=== PATIENT | female | born 1955 | race Caucasian/White ===

== ENCOUNTER 2019-03-07 20:34 | Emergency (ER) | payer BC, MEDICARE ==
[2019-03-07] MEDS ORDERED: LORazepam 2 MG/ML SDV IVPUSH ONE (21:08)
[2019-03-07] MEDS ORDERED: Ketorolac 30 MG/ML SDV IVPUSH ONE (21:08)
[2019-03-07] MEDS ORDERED: Sodium Chloride 0.9% 10 ML Syringe FLUSH PRN (21:08)
[2019-03-07] MEDS ORDERED: Sodium Chloride 0.9% 1,000 ML IV ONE (21:08)
[2019-03-07] MEDS ORDERED: Prochlorperazine 5 MG in Sodium Chloride 0.9% 50 ML IV ONE (21:08)
--- NOTE | 2019-03-07 21:16 | EDM.PDOC ---
ED HPI GENERAL MEDICAL PROBLEM - General Chief Complaint: Headache Stated Complaint: MIGRAINE Time Seen by Provider: 03/07/19 20:50 Source of Information: Reports: Patient History Limitations: Reports: No Limitations - History of Present Illness INITIAL COMMENTS - FREE TEXT/NARRATIVE: 63-year-old female with long-standing history of migraine headaches who had not had headaches for quite some time and recently moved back to the area and reports a lot of stress in her life at this point and 2 days ago began with what is her typical migraine. She has bitemporal throbbing and pounding pain with some radiation to her occiput on the right side. There is photophobia. She has had nausea with dry heaving. She has had decreased by mouth intake she rates pain as a 9/10. She has taken [id number] medication and monitor for hydrocodone since she hasn't home without relief of her pain. She reports that she had a similar headache a week or so ago and was seen in the walk-in clinic she reports that she has aching all over and this is somewhat related to the fact that she is no longer taking Humira for her psoriatic arthritis (she stopped this in September of this year secondary to insurance payment constraints ) but she feels that it is also related to the fact that she feels tense all over her migraine headache. She has had no fevers. She has had no diarrhea. She' s had no cough. There is no localized area weakness or numbness. There are no other associated signs or symptoms. There are no other modifying factors. Onset: Other (2 days ago) Duration: Constant (Not improving) Location: Reports: Head Quality: Reports: Throbbing (And pounding) Severity: Moderate (Severe) Improves with: Reports: None Worsens with: Reports: Other (Light, sound), Movement Context: Reports: Other (No inciting event known.) Associated Symptoms: Reports: Headaches, Nausea/Vomiting (Dry heaving) Treatments LAB RN: Reports: Other (see below) (As above without relief.) - Related Data Allergies Allergy/AdvReac Type Severity Reaction Status Date / Time oxycodone [From OxyContin] Allergy Headache Verified 09/01/18 21:10 zolpidem [From Ambien] Allergy Confusion Verified 09/01/18 21:10 Home Meds: Home Meds Adalimumab [Humira] 40 mg SUBCUT ASDIRECTED 03/10/18 [History] Levothyroxine 125 mcg PO QAM 11/24/17 [History] Losartan [Cozaar] 25 mg PO DAILY 11/24/17 [History] Teriparatide [Forteo] 20 mcg SUBCUT DAILY 11/24/17 [History] Triamcinolone Acetonide [Kenalog 0.1% Crm] 1 applic TOP BID PRN 12/06/17 [ History] Acetaminophen [Tylenol] 650 mg PO Q6H cup 12/12/17 [Rx] Gabapentin [Neurontin] 300 mg PO TID 08/13/18 [History] QUEtiapine [SEROquel] 50 - 100 mg PO BEDTIME 08/13/18 [History] Past Medical History Cardiovascular History: Reports: Hypertension Gastrointestinal History: Reports: Bowel Obstruction, Cholelithiasis, Chronic Constipation, Chronic Diarrhea, Colon Polyp, GERD, Hemorrhoids Genitourinary History: Reports: Pyelonephritis, Other (See Below) Other Genitourinary History: Partial removal of right kidney Musculoskeletal History: Reports: Back Pain, Chronic (She is on chronic narcotic pain management with hydrocodone for this by her primary doctor.), Fracture, Gout, Neck Pain, Chronic, Osteoarthritis, Osteoporosis, Other (See Below) Other Musculoskeletal History: right wrist fracture; psoriatic arthritis Neurological History: Reports: Concussion, Headaches, Chronic, Migraines Psychiatric History: Reports: Anxiety, Depression Endocrine/Metabolic History: Reports: Hypothyroidism Hematologic History: Reports: B12 Deficiency, Blood Transfusion(s) Oncologic (Cancer) History: Reports: Other (See Below) Other Oncologic History: skin Dermatologic History: Reports: Psoriasis - Infectious Disease History Infectious Disease History: Reports: Chicken Pox, Measles, Mumps, Shingles Other Infectious Disease History: History of MRSA under breasts - Past Surgical History HEENT Surgical History: Reports: Tonsillectomy GI Surgical History: Reports: Appendectomy, Bariatric Procedure, Cholecystectomy , Colonoscopy, EGD, Esophageal Dilatation, Hernia Repair/Other, Small Bowel Female Surgical History: Reports: Breast Reduction, Section, Hysterectomy Neurological Surgical History: Reports: Lumbar Spine, Spinal Fusion Musculoskeletal Surgical History: Reports: Knee Replacement, Shoulder Surgery, Other (See Below) Other Musculoskeletal Surgeries/Procedures:: right rotator cuff surgery. bilateral knee replacement Social & Family History - Family History HEENT: Reports: Macular Degeneration, Sinusitis Cardiac: Reports: Heart Failure, High Cholesterol, Hypertension Respiratory: Reports: COPD : Reports: Renal Disease/Insufficiency OBGYN: Reports: Ectopic , Endometriosis, Musculoskeletal: Reports: Back pain, Chronic, Other (See Below) Other Musculoskeletal Family History: knee replacements Neurological: Reports: Alzheimers Disease Endocrine/Metabolic: Reports: Diabetes, type II, Hypothyroidism, Obesity/MBI 30+ Oncologic: Reports: Other (See Below) Other Oncologic Family History: "on foot" - Tobacco Use Smoking Status *Q: Unknown Ever Smoked (Nonsmoker) - Caffeine Use Caffeine Use: Reports: Coffee, Energy Drinks, Soda, Tea - Alcohol Use Alcohol Use History: No ED ROS GENERAL - Review of Systems Review Of Systems: See Below Constitutional: Reports: No Symptoms HEENT: Reports: Other (Mouth) Respiratory: Reports: No Symptoms Cardiovascular: Reports: No Symptoms Endocrine: Reports: No Symptoms GI/Abdominal: Reports: Nausea, Vomiting (And dry heaving) : Reports: No Symptoms Musculoskeletal: Reports: Other (Body aches throughout) Skin: Reports: No Symptoms Neurological: Reports: Headache Hematologic/Lymphatic: Reports: No Symptoms Immunologic: Reports: No Symptoms - Physical Exam Exam: See Below Exam Limited By: No Limitations General Appearance: Alert, WD/WN, Moderate Distress (But she is awake alert and appropriate.) Eye Exam: Bilateral Eye: EOMI, Normal Inspection, Other (Photophobia bilaterally ) Ears: Normal External Exam Nose: Normal Inspection, Normal Mucosa, No Blood Throat/Mouth: Normal Oropharynx (Except dry mouth), No Airway Compromise Head Exam: Atraumatic, Normocephalic Neck: Normal Inspection, Supple Respiratory/Chest: No Respiratory Distress, Lungs Clear, Normal Breath Sounds, No Accessory Muscle Use, Chest Non-Tender Cardiovascular: Normal Peripheral Pulses, Regular Rate, Rhythm, No JVD GI/Abdominal: Normal Bowel Sounds, Soft, Non-Tender Neuro Exam (Abbreviated): Alert, Oriented, CN II-XII Intact, Normal Cognition, No Motor/Sensory Deficits Back Exam: Normal Inspection Extremities: Normal Inspection, Normal Range of Motion, Non-Tender, Normal Capillary Refill Psychiatric: Normal Affect Skin Exam: Warm, Dry, Intact, Normal Color Course - Vital Signs Last Recorded V/S: Last Vital Signs Temp 36.9 C 03/07/19 20:45 Pulse 116 H 03/07/19 20:45 Resp 16 03/07/19 20:45 BP 111/86 03/07/19 20:45 Pulse Ox 100 03/07/19 20:45 - Orders/Labs/Meds Orders: Active Orders 24 hr Category Date Time Status Sodium Chloride 0.9% [Saline Flush] Med 03/07/19 21:08 Active 10 ml FLUSH ASDIRECTED PRN Saline Lock Insert [OM.PC] Routine Oth 03/07/19 21:08 Ordered Medication Orders Sodium Chloride (Saline Flush) 10 ml FLUSH ASDIRECTED PRN PRN Reason: Keep Vein Open Meds: Medications Generic Name Dose Route Start Last Admin Trade Name Freq PRN Reason Stop Dose Admin Sodium Chloride 10 ml 03/07/19 21:08 Saline Flush FLUSH ASDIRECTED PRN Keep Vein Open Discontinued Medications Generic Name Dose Route Start Last Admin Trade Name Freq PRN Reason Stop Dose Admin Diphenhydramine HCl 25 mg 03/07/19 22:54 Benadryl IVPUSH 03/07/19 22:55 ONETIME ONE Prochlorperazine Edisylate 5 51 mls @ 150 mls/hr 03/07/19 21:08 mg/ Sodium Chloride IV 03/07/19 21:28 ONETIME ONE Sodium Chloride 1,000 mls @ 999 mls/hr 03/07/19 21:08 Normal Saline IV 03/07/19 22:08 .BOLUS ONE Ketorolac Tromethamine 30 mg 03/07/19 21:08 Toradol IVPUSH 03/07/19 21:09 ONETIME ONE Lorazepam 1 mg 03/07/19 21:08 Ativan IVPUSH 03/07/19 21:09 ONETIME ONE Prochlorperazine Edisylate 5 mg 03/07/19 22:56 Compazine IVPUSH 03/07/19 22:57 ONETIME ONE - Re-Assessments/Exams Free Text/Narrative Re-Assessment/Exam: 03/07/19 22:15: Patient resting comfortably. She reports that her headache is down to a 6/10 and it is in her forehead area. She awakens easily and is vitally and neurologically stable. Nausea has resolved. I will give her additional Compazine. 03/07/19 23:40: Patient was sleeping. When awakened, she reports that her headache was down to a 4/10 and was decreasing. She feels much improved and is ready for discharge home. Departure - Departure Time of Disposition: 23:50 Disposition: Home, Self-Care 01 Condition: Good Clinical Impression: Dehydration, mild Migraine headache Qualifiers: Migraine type: without aura Status migrainosus presence: without status migrainosus Intractability: not intractable Qualified Code(s): G43.009 - Migraine without aura, not intractable, without status migrainosus - Discharge Information Instructions: Dehydration, Adult, [id number], Migraine Headache, [id number] Forms: ED Department Discharge Additional Instructions: You should rest. You should drink plenty of fluids. Follow-up with your primary doctor. Back to the emergency department for worsening headache, unrelenting vomiting, fever or any other concerning sign or symptom. - My Orders Last 24 Hours: My Active Orders 03/07/19 21:08 Sodium Chloride 0.9% [Saline Flush] 10 ml FLUSH ASDIRECTED PRN Saline Lock Insert [OM.PC] Routine - Assessment/Plan Last 24 Hours: My Active Orders 03/07/19 21:08 Sodium Chloride 0.9% [Saline Flush] 10 ml FLUSH ASDIRECTED PRN Saline Lock Insert [OM.PC] Routine
[2019-03-07] MEDS ORDERED: Haloperidol Lactate 5 MG/ML SDV IV ONE (22:53)
[2019-03-07] MEDS ORDERED: diphenhydrAMINE 50 MG/ML SDV IVPUSH ONE (22:54)
[2019-03-07] MEDS ORDERED: Prochlorperazine 10 MG/2 ML SDV IVPUSH ONE (22:56)
== END 2019-03-08 00:35 | disposition home or self-care (01) ==
LOC: FB.ED 20:34
DX: G43.009 Migraine without aura, not intractable, without status migrainosus (principal); E86.0 Dehydration; I10 Essential (primary) hypertension; K21.9 Gastro-esophageal reflux disease without esophagitis; F41.9 Anxiety disorder, unspecified; F32.9 Major depressive disorder, single episode, unspecified; Z79.899 Other long term (current) drug therapy; Z88.6 Allergy status to analgesic agent; Z88.8 Allergy status to other drugs, medicaments and biological substances
CPT/HCPCS: 96365; 96375; 96376; 99283; J0780; J1200; J1885; J2060; J7030; J7050

== ENCOUNTER 2020-05-14 17:07 | Emergency (ER) | payer MEDICARE, OTHER ==
--- NOTE | 2020-05-14 18:10 | EDM.PDOC ---
ED HPI GENERAL MEDICAL PROBLEM - General Chief Complaint: Chest Pain Stated Complaint: CHEST PAIN Time Seen by Provider: 05/14/20 17:10 Source of Information: Reports: Patient History Limitations: Reports: No Limitations - History of Present Illness INITIAL COMMENTS - FREE TEXT/NARRATIVE: Patient presented to the ED because of chest pain at about 5:30 pm last night. The pain is sharp 3/10. There is no associated N/V, dyspnea or diaphoresis. the pain is pleuritic type. Patient said that she lifted a kayak an hour before the chest pain started. - Related Data Allergies Allergy/AdvReac Type Severity Reaction Status Date / Time oxycodone [From OxyContin] Allergy Headache Verified 03/08/19 20:54 zolpidem [From Ambien] Allergy Confusion Verified 03/08/19 20:54 Home Meds: Home Meds Levothyroxine 125 mcg PO QAM 11/24/17 [History] Losartan [Cozaar] 25 mg PO DAILY 11/24/17 [History] Teriparatide [Forteo] 20 mcg SUBCUT DAILY 11/24/17 [History] Triamcinolone Acetonide [Kenalog 0.1% Crm] 1 applic TOP BID PRN 12/06/17 [History] Acetaminophen [Tylenol] 650 mg PO Q6H cup 12/12/17 [Rx] Gabapentin [Neurontin] 300 mg PO TID 08/13/18 [History] Past Medical History HEENT History: Reports: Impaired Vision Cardiovascular History: Reports: Hypertension Gastrointestinal History: Reports: Bowel Obstruction, Cholelithiasis, Chronic Constipation, Chronic Diarrhea, Colon Polyp, GERD, Hemorrhoids Other Gastrointestinal History: History of ileus. 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, Musculoskeletal History: Reports: Back Pain, Chronic (She is on chronic narcotic pain management with hydrocodone for this by her primary doctor.), Fracture, Gout, Neck Pain, Chronic, Osteoarthritis, Osteoporosis, Other (See Below) Other Musculoskeletal History: right wrist fracture; psoriatic arthritis Neurological History: Reports: Concussion, Headaches, Chronic, Migraines Psychiatric History: Reports: Anxiety, Depression Endocrine/Metabolic History: Reports: Hypothyroidism Hematologic History: Reports: B12 Deficiency, Blood Transfusion(s) Oncologic (Cancer) History: Reports: Other (See Below) Other Oncologic History: skin Dermatologic History: Reports: Psoriasis - Infectious Disease History Infectious Disease History: Reports: Chicken Pox, Measles, Mumps, Shingles Other Infectious Disease History: History of MRSA under breasts - Past Surgical History HEENT Surgical History: Reports: Tonsillectomy GI Surgical History: Reports: Appendectomy, Bariatric Procedure, Cholecystectomy, Colonoscopy, EGD, Esophageal Dilatation, Hernia Repair/Other, Small Bowel Female Surgical History: Reports: Breast Reduction, Section, Hysterectomy Neurological Surgical History: Reports: Lumbar Spine, Spinal Fusion Musculoskeletal Surgical History: Reports: Knee Replacement, Shoulder Surgery, Other (See Below) Other Musculoskeletal Surgeries/Procedures:: right rotator cuff surgery. bilateral knee replacement Social & Family History - Family History Family Medical History: Noncontributory HEENT: Reports: Macular Degeneration, Sinusitis Cardiac: Reports: Heart Failure, High Cholesterol, Hypertension Respiratory: Reports: COPD : Reports: Renal Disease/Insufficiency OBGYN: Reports: Ectopic , Endometriosis, Musculoskeletal: Reports: Back pain, Chronic, Other (See Below) Other Musculoskeletal Family History: knee replacements Neurological: Reports: Alzheimers Disease Endocrine/Metabolic: Reports: Diabetes, type II, Hypothyroidism, Obesity/MBI 30+ Oncologic: Reports: Other (See Below) Other Oncologic Family History: "on foot" - Caffeine Use Caffeine Use: Reports: Coffee, Energy Drinks, Soda, Tea ED ROS GENERAL - Review of Systems Review Of Systems: See Below Constitutional: Reports: No Symptoms HEENT: Reports: No Symptoms Respiratory: Reports: No Symptoms Cardiovascular: Reports: Chest Pain Endocrine: Reports: No Symptoms GI/Abdominal: Reports: No Symptoms : Reports: No Symptoms Musculoskeletal: Reports: No Symptoms Skin: Reports: No Symptoms Neurological: Reports: No Symptoms Psychiatric: Reports: No Symptoms Hematologic/Lymphatic: Reports: No Symptoms ED EXAM, GENERAL - Physical Exam Exam: See Below Exam Limited By: No Limitations General Appearance: Alert, No Apparent Distress Nose: Normal Inspection, Normal Mucosa Throat/Mouth: Normal Inspection, Normal Lips, Normal Teeth Head: Atraumatic, Normocephalic Neck: Normal Inspection, Supple, Non-Tender, Full Range of Motion Respiratory/Chest: No Respiratory Distress, Lungs Clear, Normal Breath Sounds Cardiovascular: Normal Peripheral Pulses, Regular Rate, Rhythm, No Edema, No Gallop GI/Abdominal: Normal Bowel Sounds, Soft, Non-Tender, No Organomegaly Back Exam: Normal Inspection, Full Range of Motion Extremities: Normal Inspection, Normal Range of Motion, Non-Tender Neurological: Alert, Oriented, CN II-XII Intact, Normal Cognition, Normal Gait Psychiatric: Normal Affect Skin Exam: Warm Course - Vital Signs Text/Narrative:: Labs/EKG/was discussed with patient ASA 324 mg po x1 She is chest pain free while in the ED - Orders/Labs/Meds Orders: Active Orders 24 hr Category Date Time Status EKG 12 Lead [EK] Routine Ther 05/14/20 17:18 Ordered Labs: Laboratory Tests 05/14/20 05/14/20 05/14/20 Range/Units 17:20 17:20 17:20 WBC 7.4 (4.5-12.0) X10-3/uL RBC 4.16 (3.23-5.20) x10(6)uL Hgb 12.7 (11.5-15.5) g/dL Hct 38.1 (30.0-51.3) % MCV 91.6 (80-96) fL MCH 30.7 (27.7-33.6) pg MCHC 33.5 (32.2-35.4) g/dL RDW 12.0 (11.5-15.5) % Plt Count 209 (125-369) X10(3)uL MPV 8.5 (7.4-10.4) fL Neut % (Auto) 55.1 (46-82) % Lymph % (Auto) 36.6 (13-37) % Ogle % (Auto) 6.9 (4-12) % Eos % (Auto) 1 (1.0-5.0) % Baso % (Auto) 0 (0-2) % Neut # (Auto) 4.1 (1.6-8.3) # Lymph # (Auto) 2.7 (0.6-5.0) # Ogle # (Auto) 0.5 (0.0-1.3) # Eos # (Auto) 0.1 (0.0-0.8) # Baso # (Auto) 0.0 (0.0-0.2) # Sodium 137 (135-145) mmol/L Potassium 3.6 (3.5-5.3) mmol/L Chloride 100 (100-110) mmol/L Carbon Dioxide 28 (21-32) mmol/L BUN 19 H (7-18) mg/dL Creatinine 0.7 (0.55-1.02) mg/dL Est Cr Clr Drug Dosing TNP Estimated GFR (MDRD) > 60 (>60) BUN/Creatinine Ratio 27.1 H (9-20) Glucose 94 (80-116) mg/dL Calcium 9.8 (8.6-10.2) mg/dL Total Bilirubin 0.8 (0.1-1.3) mg/dL AST 86 H D (5-25) IU/L ALT 64 H D (12-36) U/L Alkaline Phosphatase 64 (56-112) IU/L Troponin I 5.5 (4.0-60.3) pg/mL Total Protein 7.4 (6.0-8.0) g/dL Albumin 4.2 (3.2-4.6) g/dL Globulin 3.2 g/dL Albumin/Globulin Ratio 1.3 Departure - Departure Time of Disposition: 18:10 Disposition: Home, Self-Care 01 Condition: Good Clinical Impression: Atypical chest pain Instructions: Nonspecific Chest Pain, Adult Referrals: Jessie Martines MD [Primary Care Provider] - Forms: ED Department Discharge Additional Instructions: Please read discharge instructions on atypical chest pain or chest wall pain Take tylenol 1000 mg every 8 hours as needed for pain Follow up with your doctor with regard to your spinning sensation so you can be referred to see the physical therapist for canalith repositioning which helps with the spinning sensation that you are experiencing - My Orders Last 24 Hours: My Active Orders 05/14/20 17:18 EKG 12 Lead [EK] Routine - Assessment/Plan Last 24 Hours: My Active Orders 05/14/20 17:18 EKG 12 Lead [EK] Routine
== END 2020-05-14 18:21 | disposition home or self-care (01) ==
LOC: FB.ED 17:07
DX: R07.89 Other chest pain (principal); I10 Essential (primary) hypertension; Z88.5 Allergy status to narcotic agent; Z88.8 Allergy status to other drugs, medicaments and biological substances; Z79.899 Other long term (current) drug therapy; Z90.710 Acquired absence of both cervix and uterus; Z90.49 Acquired absence of other specified parts of digestive tract
CPT/HCPCS: 36415; 80053; 84484; 85025; 99283; 99285-25

== ENCOUNTER 2022-01-15 08:52 | Emergency (ER) | payer MEDICARE, OTHER ==
[2022-01-15] MEDS ORDERED: Aspirin 81 MG Tab.Chew PO ONE (09:07)
[2022-01-15] MEDS ORDERED: Nitroglycerin 0.4 MG Tab.SL SL PRN (09:07)
[2022-01-15] MEDS ORDERED: Ketorolac 30 MG/ML SDV IVPUSH ONE (09:35)
[2022-01-15] MEDS ORDERED: Ondansetron 4 MG/2 ML SDV IVPUSH ONE (09:35)
[2022-01-15] MEDS ORDERED: Iopamidol 755 Mg/ML 75 ML Bottle IV ONE (10:31)
[2022-01-15] MEDS ORDERED: Azithromycin 500 MG Tab PO STA (12:10)
[2022-01-15] MEDS ORDERED: Potassium Chloride 20 MEQ Tab.ER PO STA (12:10)
[2022-01-15] MEDS ORDERED: Acetaminophen 500 MG Tab PO ONE (12:18)
[2022-01-15] MEDS: Acetaminophen 500 MG Tab ONE ×2 (12:20→13:18)
== END 2022-01-15 12:50 | disposition home or self-care (01) ==
LOC: FB.ED 08:52
DX: J18.9 Pneumonia, unspecified organism (principal); E87.6 Hypokalemia; I10 Essential (primary) hypertension; K21.9 Gastro-esophageal reflux disease without esophagitis; E03.9 Hypothyroidism, unspecified; Z88.5 Allergy status to narcotic agent; Z88.8 Allergy status to other drugs, medicaments and biological substances; Z79.899 Other long term (current) drug therapy
CPT/HCPCS: 36415; 71045; 71275; 80053; 83880; 84484; 85025; 85379; 85610; 85730; 93005; 96374; 96375; 99285; A9270; J1885; J2405; Q9967

== ENCOUNTER 2022-10-12 19:20 | Emergency (ER) | payer MEDICARE, OTHER ==
[2022-10-12] MEDS ORDERED: Ondansetron 4 MG/2 ML SDV IVPUSH ONE (19:43)
[2022-10-12] MEDS ORDERED: Morphine 4 MG/ML VIAL IVPUSH ONE (19:43)
[2022-10-12] MEDS ORDERED: Sodium Chloride 0.9% 1,000 ML IV ONE (19:43)
[2022-10-12 20:03] LABS: ESTIMATED GFR 94 mL/min (>60)
[2022-10-12] MEDS: Sodium Chloride 0.9% 10 ML Syringe FLUSH PRN ×2 (20:03→21:32)
[2022-10-12] MEDS ORDERED: Iopamidol 755 Mg/ML 100 ML Bottle IV ONE (20:49)
[2022-10-12] MEDS ORDERED: HYDROmorphone 2 MG/ML SDV IVPUSH ONE (21:17)
== END 2022-10-12 23:00 | disposition home or self-care (01) ==
LOC: FB.ED 19:20
DX: K59.00 Constipation, unspecified (principal); I10 Essential (primary) hypertension; K21.9 Gastro-esophageal reflux disease without esophagitis; M10.9 Gout, unspecified; E03.9 Hypothyroidism, unspecified; Z88.5 Allergy status to narcotic agent; Z88.8 Allergy status to other drugs, medicaments and biological substances; Z79.899 Other long term (current) drug therapy
CPT/HCPCS: 36415; 74177; 80053; 83605; 83690; 83735; 85025; 96361; 96374; 96375; 99283; 99285-25; J1170; J2270; J2405; J3490; J7030; Q9967

== ENCOUNTER 2023-08-07 20:53 | Emergency (ER) | payer MEDICARE ==
[2023-08-07] MEDS ORDERED: Sodium Chloride 0.9% 10 ML Syringe FLUSH PRN (21:18)
[2023-08-07 21:33] LABS: BILIRUBIN,URINE NEGATIVE (NEGATIVE); GLUCOSE,URINE NORMAL (NORMAL); KETONES,URINE 15 mg/dL (NEGATIVE); LEUKOCYTE ESTERASE,URINE NEGATIVE (NEGATIVE); NITRITE,URINE NEGATIVE (NEGATIVE); OCCULT BLOOD,URINE NEGATIVE (NEGATIVE); PROTEIN,URINE NEGATIVE (NEGATIVE); UROBILINOGEN,URINE NORMAL (NEGATIVE)
[2023-08-07 21:38] LABS: BASOPHILS PERCENT AUTO 0.6 % (0.2-1.5); EOSINOPHILS ABSOLUTE AUTO 0.1 x10-3/uL (0.0-0.8); EOSINOPHILS PERCENT AUTO 1.8 % (0.6-8.1); HEMATOCRIT 40.7 % (34.2-48.2); HEMOGLOBIN 13.9 g/dL (11.4-15.5); LYMPHOCYTES PERCENT AUTO 27.3 % (18.4-52.1); MEAN CORPUSCULAR HEMOGLOBIN 31.7 pg (23.9-33.9); MEAN CORPUSCULAR HGB CONC 34.1 g/dL (31.9-34.8); MEAN CORPUSCULAR VOLUME 92.8 fL (76.7-100.5); MEAN PLATELET VOLUME 7.7 fL (7.1-12.4); MONOCYTES ABSOLUTE AUTO 0.6 x10-3/uL (0.3-1.0); MONOCYTES PERCENT AUTO 8.4 % (4.4-15.7); NEUTROPHILS ABSOLUTE AUTO 4.5 x10-3/uL (1.5-6.3); NEUTROPHILS PERCENT AUTO 61.9 % (30.8-76.2); PLATELET COUNT,PLT 284 x10(3)uL (151-488); RED BLOOD CELL COUNT 4.39 x10(6)uL (3.60-5.20); RED CELL DISTRIBUTION WIDTH 13.8 % (12.3-16.5); WHITE BLOOD CELL COUNT,WBC 7.2 x10-3/uL (3.0-10.3)
[2023-08-07 21:39] LABS: APPEARANCE,URINE CLEAR (CLEAR); BACTERIA,URINE FEW (NS); COLOR,URINE YELLOW (YELLOW); RBC,URINE 0-5 (0-5); SQUAMOUS EPITHELIAL CELLS,UR FEW (NS,R,O); WBC,URINE 0-5 (0-5)
[2023-08-07] MEDS: Sodium Chloride 0.9% 500 ML IV ONE (21:40)
[2023-08-07] MEDS: diphenhydrAMINE 50 MG/ML SDV IVPUSH ONE (21:40)
[2023-08-07] MEDS: Prochlorperazine 10 MG/2 ML SDV IVPUSH ONE (21:41)
[2023-08-07] MEDS: LORazepam 2 MG/ML SDV IVPUSH ONE (21:41)
[2023-08-07 21:42] LABS: BLOOD UREA NITROGEN,BUN 13 mg/dL (7-18); BUN/CREATININE RATIO 18.6 (9-20); CALCIUM 10.1 mg/dL (8.6-10.2); CARBON DIOXIDE,CO2 33 mmol/L (21-32); CHLORIDE,CL 98 mmol/L (100-110); CREATININE 0.7 mg/dL (0.55-1.02); EST CRCL DRUG DOSING (CG) 55.25 mL/min; ESTIMATED GFR 94 mL/min (>60); GLUCOSE RANDOM 99 mg/dL (80-116); POTASSIUM,K 3.7 mmol/L (3.5-5.3); SODIUM,NA 139 mmol/L (135-145)
[2023-08-07 21:47] LABS: A/G RATIO 1.2; ALANINE AMINOTRANSFERASE,ALT 31 U/L (12-36); ALBUMIN 4.3 g/dL (3.2-4.6); ALKALINE PHOSPHATASE 59 IU/L (56-112); ASPARTATE AMNIOTRANSFERASE,AST 17 IU/L (5-25); BILIRUBIN TOTAL 0.7 mg/dL (0.1-1.3); MAGNESIUM 2.1 mg/dL (1.8-2.5)
[2023-08-07 21:49] LABS: C-REACTIVE PROTEIN <0.50 mg/dL (<0.50); TROPONIN I 6.4 pg/mL (4.0-60.3)
[2023-08-07 21:51] LABS: SEDIMENTATION RATE MANUAL 5 mm/hr (0-20)
== END 2023-08-07 23:10 | disposition home or self-care (01) ==
LOC: FB.ED 20:53
DX: G43.909 Migraine, unspecified, not intractable, without status migrainosus (principal); I10 Essential (primary) hypertension; E11.9 Type 2 diabetes mellitus without complications; K21.9 Gastro-esophageal reflux disease without esophagitis; M19.90 Unspecified osteoarthritis, unspecified site; Z88.8 Allergy status to other drugs, medicaments and biological substances; Z79.899 Other long term (current) drug therapy
CPT/HCPCS: 36415; 80053; 81001; 83735; 84484; 85025; 85651; 86140; 93005; 96361; 96374; 96375; 99283; J0780; J1200; J2060; J7040

== ENCOUNTER 2023-08-26 08:17 | Emergency (ER) | payer MEDICARE ==
[2023-08-26 09:08] LABS: BASOPHILS PERCENT AUTO 0.4 % (0.2-1.5); EOSINOPHILS PERCENT AUTO 0.2 % (0.6-8.1); HEMATOCRIT 38.3 % (34.2-48.2); LYMPHOCYTES ABSOLUTE AUTO 1.7 x10-3/uL (1.0-4.4); LYMPHOCYTES PERCENT AUTO 17.5 % (18.4-52.1); MEAN CORPUSCULAR HEMOGLOBIN 32.1 pg (23.9-33.9); MEAN CORPUSCULAR VOLUME 94.6 fL (76.7-100.5); MONOCYTES ABSOLUTE AUTO 0.7 x10-3/uL (0.3-1.0); MONOCYTES PERCENT AUTO 7.8 % (4.4-15.7); NEUTROPHILS ABSOLUTE AUTO 7.1 x10-3/uL (1.5-6.3); NEUTROPHILS PERCENT AUTO 74.1 % (30.8-76.2); PLATELET COUNT,PLT 330 x10(3)uL (151-488); RED BLOOD CELL COUNT 4.05 x10(6)uL (3.60-5.20); WHITE BLOOD CELL COUNT,WBC 9.6 x10-3/uL (3.0-10.3)
[2023-08-26 09:10] LABS: BLOOD UREA NITROGEN,BUN 10 mg/dL (7-18); CALCIUM 9.2 mg/dL (8.6-10.2); CARBON DIOXIDE,CO2 31 mmol/L (21-32); CHLORIDE,CL 96 mmol/L (100-110); CREATININE 0.5 mg/dL (0.55-1.02); ESTIMATED GFR 102 mL/min (>60); GLUCOSE RANDOM 107 mg/dL (80-116); POTASSIUM,K 3.7 mmol/L (3.5-5.3); SODIUM,NA 131 mmol/L (135-145)
[2023-08-26] MEDS ORDERED: Sodium Chloride 0.9% 500 ML IV ONE (09:13)
[2023-08-26] MEDS ORDERED: diphenhydrAMINE 50 MG/ML SDV IVPUSH ONE (09:13)
[2023-08-26] MEDS ORDERED: Ketorolac 30 MG/ML SDV IVPUSH ONE (09:13)
[2023-08-26] MEDS ORDERED: LORazepam 2 MG/ML SDV IVPUSH ONE (09:13)
[2023-08-26] MEDS ORDERED: Prochlorperazine 10 MG/2 ML SDV IVPUSH ONE (09:13)
[2023-08-26 09:16] LABS: ALANINE AMINOTRANSFERASE,ALT 33 U/L (12-36); ALBUMIN 3.7 g/dL (3.2-4.6); ALKALINE PHOSPHATASE 55 IU/L (56-112); ASPARTATE AMNIOTRANSFERASE,AST 23 IU/L (5-25); BILIRUBIN TOTAL 0.5 mg/dL (0.1-1.3); MAGNESIUM 1.9 mg/dL (1.8-2.5); PROTEIN TOTAL,TP 7.3 g/dL (6.0-8.0)
[2023-08-26] MEDS: Sodium Chloride 0.9% 10 ML Syringe FLUSH PRN ×4 (09:17→10:20)
== END 2023-08-26 10:30 | disposition home or self-care (01) ==
LOC: FB.ED 08:17
DX: G43.009 Migraine without aura, not intractable, without status migrainosus (principal); I10 Essential (primary) hypertension; E86.0 Dehydration; E03.9 Hypothyroidism, unspecified; K21.9 Gastro-esophageal reflux disease without esophagitis; Z79.899 Other long term (current) drug therapy; Z88.8 Allergy status to other drugs, medicaments and biological substances; Z88.5 Allergy status to narcotic agent
CPT/HCPCS: 36415; 80053; 83735; 84484; 85025; 93005; 96374; 96375; 99283; J0780; J1200; J1885; J2060; J3490; J7040

== ENCOUNTER 2023-09-22 12:33 | Emergency (ER) | payer MEDICARE ==
[2023-09-22] MEDS ORDERED: Morphine 4 MG/ML VIAL IVPUSH ONE (13:03)
[2023-09-22] MEDS ORDERED: Sodium Chloride 0.9% 10 ML Syringe FLUSH PRN (13:03)
[2023-09-22] MEDS ORDERED: Labetalol 20 MG/4 ML Syringe IVPUSH ONE (13:03)
[2023-09-22] MEDS ORDERED: Prochlorperazine 10 MG/2 ML SDV IVPUSH ONE (13:08)
[2023-09-22 13:22] LABS: BASOPHILS PERCENT AUTO 0.4 % (0.2-1.5); EOSINOPHILS ABSOLUTE AUTO 0.1 x10-3/uL (0.0-0.8); EOSINOPHILS PERCENT AUTO 0.8 % (0.6-8.1); HEMATOCRIT 34.4 % (34.2-48.2); HEMOGLOBIN 11.6 g/dL (11.4-15.5); LYMPHOCYTES ABSOLUTE AUTO 0.9 x10-3/uL (1.0-4.4); LYMPHOCYTES PERCENT AUTO 13.1 % (18.4-52.1); MEAN CORPUSCULAR HEMOGLOBIN 32.2 pg (23.9-33.9); MEAN CORPUSCULAR HGB CONC 33.7 g/dL (31.9-34.8); MEAN CORPUSCULAR VOLUME 95.6 fL (76.7-100.5); MEAN PLATELET VOLUME 7.3 fL (7.1-12.4); MONOCYTES ABSOLUTE AUTO 0.4 x10-3/uL (0.3-1.0); NEUTROPHILS ABSOLUTE AUTO 5.7 x10-3/uL (1.5-6.3); NEUTROPHILS PERCENT AUTO 79.7 % (30.8-76.2); PLATELET COUNT,PLT 221 x10(3)uL (151-488); WHITE BLOOD CELL COUNT,WBC 7.2 x10-3/uL (3.0-10.3)
[2023-09-22 13:29] LABS: BLOOD UREA NITROGEN,BUN 9 mg/dL (7-18); CALCIUM 8.9 mg/dL (8.6-10.2); CARBON DIOXIDE,CO2 33 mmol/L (21-32); CHLORIDE,CL 100 mmol/L (100-110); CREATININE 0.5 mg/dL (0.55-1.02); ESTIMATED GFR 102 mL/min (>60); GLUCOSE RANDOM 95 mg/dL (80-116); POTASSIUM,K 3.1 mmol/L (3.5-5.3); SODIUM,NA 134 mmol/L (135-145)
[2023-09-22] MEDS ORDERED: Ketorolac 30 MG/ML SDV IVPUSH ONE (13:33)
[2023-09-22] MEDS ORDERED: diphenhydrAMINE 50 MG/ML SDV IVPUSH ONE (13:33)
[2023-09-22] MEDS ORDERED: LORazepam 2 MG/ML SDV IVPUSH ONE (13:33)
[2023-09-22 13:35] LABS: A/G RATIO 1.1; ALANINE AMINOTRANSFERASE,ALT 30 U/L (12-36); ALBUMIN 3.4 g/dL (3.2-4.6); ALKALINE PHOSPHATASE 62 IU/L (56-112); ASPARTATE AMNIOTRANSFERASE,AST 20 IU/L (5-25); BILIRUBIN TOTAL 0.4 mg/dL (0.1-1.3); PROTEIN TOTAL,TP 6.5 g/dL (6.0-8.0)
[2023-09-22] MEDS ORDERED: Potassium Chloride 20 MEQ Tab.ER PO ONE (14:15)
== END 2023-09-22 15:50 | disposition home or self-care (01) ==
LOC: FB.ED 12:33
DX: G43.009 Migraine without aura, not intractable, without status migrainosus (principal); I10 Essential (primary) hypertension; Z79.899 Other long term (current) drug therapy; Z88.5 Allergy status to narcotic agent
CPT/HCPCS: 36415; 80053; 84484; 85025; 93005; 96374; 96375; 99284; A9270; J0780; J1200; J1885; J2060; J2270; J3490

== ENCOUNTER 2024-08-24 19:14 | Emergency (ER) | payer MEDICARE, MEDICAID ==
[2024-08-24] MEDS: Sodium Chloride 0.9% 1,000 ML IV ONE (19:30)
[2024-08-24 19:32] LABS: BASOPHILS PERCENT AUTO 0.3 % (0.2-1.5); EOSINOPHILS ABSOLUTE AUTO 0.1 x10-3/uL (0.0-0.8); EOSINOPHILS PERCENT AUTO 1.3 % (0.6-8.1); HEMATOCRIT 40.7 % (34.2-48.2); HEMOGLOBIN 13.8 g/dL (11.4-15.5); LYMPHOCYTES ABSOLUTE AUTO 2.2 x10-3/uL (1.0-4.4); LYMPHOCYTES PERCENT AUTO 29.5 % (18.4-52.1); MEAN CORPUSCULAR HEMOGLOBIN 31.2 pg (23.9-33.9); MEAN CORPUSCULAR VOLUME 91.8 fL (76.7-100.5); MEAN PLATELET VOLUME 8.4 fL (7.1-12.4); MONOCYTES ABSOLUTE AUTO 0.7 x10-3/uL (0.3-1.0); NEUTROPHILS ABSOLUTE AUTO 4.5 x10-3/uL (1.5-6.3); NEUTROPHILS PERCENT AUTO 59.9 % (30.8-76.2); PLATELET COUNT,PLT 272 x10(3)uL (151-488); RED BLOOD CELL COUNT 4.43 x10(6)uL (3.60-5.20); RED CELL DISTRIBUTION WIDTH 13.5 % (12.3-16.5); WHITE BLOOD CELL COUNT,WBC 7.5 x10-3/uL (3.0-10.3)
[2024-08-24] MEDS: HYDROmorphone 2 MG/ML SDV IVPUSH ONE ×2 (19:35→21:00)
[2024-08-24 19:39] LABS: BLOOD UREA NITROGEN,BUN 12 mg/dL (7-18); BUN/CREATININE RATIO 17.1 (9-20); CALCIUM 9.6 mg/dL (8.6-10.2); CARBON DIOXIDE,CO2 28 mmol/L (21-32); CHLORIDE,CL 103 mmol/L (100-110); CREATININE 0.7 mg/dL (0.55-1.02); ESTIMATED GFR 94 mL/min (>60); GLUCOSE RANDOM 111 mg/dL (80-116); POTASSIUM,K 3.6 mmol/L (3.5-5.3); SODIUM,NA 143 mmol/L (135-145)
[2024-08-24 19:44] LABS: ALANINE AMINOTRANSFERASE,ALT 33 U/L (12-36); ALBUMIN 3.8 g/dL (3.2-4.6); ALKALINE PHOSPHATASE 70 IU/L (56-112); ASPARTATE AMNIOTRANSFERASE,AST 29 IU/L (5-25); BILIRUBIN TOTAL 0.3 mg/dL (0.1-1.3); PROTEIN TOTAL,TP 7.6 g/dL (6.0-8.0)
[2024-08-24] MEDS: Iopamidol 755 Mg/ML 100 ML Bottle IV SCH (20:19)
[2024-08-24] MEDS: Ondansetron 4 MG/2 ML SDV IVPUSH ONE (22:45)
[2024-08-24] MEDS: LORazepam 2 MG/ML SDV IVPUSH ONE (22:50)
[2024-08-25] MEDS: LORazepam 2 MG/ML SDV IVPUSH ONE (01:11)
[2024-08-25] MEDS: HYDROmorphone 2 MG/ML SDV IVPUSH ONE (01:19)
== END 2024-08-25 01:40 ==
LOC: FB.ED 19:14
DX: K59.81 Ogilvie syndrome (principal); I10 Essential (primary) hypertension; K21.9 Gastro-esophageal reflux disease without esophagitis; E03.9 Hypothyroidism, unspecified; Z90.49 Acquired absence of other specified parts of digestive tract; Z98.84 Bariatric surgery status; Z90.710 Acquired absence of both cervix and uterus; Z88.5 Allergy status to narcotic agent; Z88.8 Allergy status to other drugs, medicaments and biological substances; Z79.890 Hormone replacement therapy; Z79.899 Other long term (current) drug therapy
CPT/HCPCS: 43752; 74018; 74177; 80053; 83605; 83690; 85025; 96361; 96374; 96375; 96376; 99285; J1171; J2060; J2405; J7030; Q9967